=== PATIENT | female | born 1995 | race Caucasian/White ===

== ENCOUNTER 2021-02-16 05:50 | Inpatient (IN) | payer OTHER ==
[~2021-02-16] VITALS: Ht 160 cm; Wt 89.4 kg
--- NOTE | 2021-02-16 12:38 | PR ---
[facility] [address] [facility] [place], [place] [address] Signed Progress Notes IP Datetime Report Generated by CPN: 02/16/2021 12:38 PROGRESS NOTES: [id number] Impression: Normal Progression of Labor; Reassuring Heart Rate Procedures: Artificial ROM; Sterile Vag Exam Plan: Continue Present Management VITAL SIGNS: [id number] Vital Signs: Reviewed VS Notable Details: mild HTN EXAM: [id number] Dilatation: 4.0 Effacement: 80 Station: -2 Contractions: occ MEMBRANES: [id number] Comments: Contractions more noticeable. Will continue. FETUS A: [id number] FHR Baseline: 125 Variability: Moderate 6-25bpm Accelerations: 15X15 Decelerations: None FHR Category: Category I Presentation: Vertex Comments on Fetus A: No evidence of metabolic acidosis FETUS B: [id number] Signing Physician: Daily Bal MD Copies: ~ *Electronically Signed* 02/16/21 1238 DAILY BAL MD PATIENT NAME: LORETO JENSEN PROGRESS NOTE DATE OF : 89 PHYSICIAN: DAILY BAL MD RPT #: [id number] REPORT IS CONFIDENTIAL AND NOT TO BE RELEASED WITHOUT AUTHORIZATION
--- NOTE | 2021-02-16 15:53 | PR ---
[facility] [address] [place], [place] [address] Signed Progress Notes IP Datetime Report Generated by CPN: 02/16/2021 15:53 PROGRESS NOTES: [id number] Impression: Normal Progression of Labor Procedures: Intrauterine Pressure Catheter; Scalp Electrode; Sterile Vag Exam Plan: Continue Present Management VITAL SIGNS: [id number] Vital Signs: Reviewed VS Notable Details: mild HTN EXAM: [id number] Dilatation: 6.0 Effacement: 90 Station: -1 Contractions: occ MEMBRANES: [id number] Comments: Progressing well. Baby with reserve with good accel with exam. Will continue close observation. FETUS A: [id number] FHR Baseline: 125 Variability: Moderate 6-25bpm Accelerations: 15X15 Decelerations: None FHR Category: Category I Presentation: Vertex Comments on Fetus A: No evidence of metabolic acidosis FETUS B: [id number] Signing Physician: Daily Bal MD Copies: ~ *Electronically Signed* 02/16/21 1553 DAILY BAL MD PATIENT NAME: NATALIE JENSENMANOJ ARORAE PROGRESS NOTE DATE OF : 89 PHYSICIAN: DAILY BAL MD RPT #: [id number] REPORT IS CONFIDENTIAL AND NOT TO BE RELEASED WITHOUT AUTHORIZATION
--- NOTE | 2021-02-16 16:59 | PR ---
[facility] [address] [place], [place] [address] Signed Progress Notes IP Datetime Report Generated by CPN: 02/16/2021 16:59 PROGRESS NOTES: [id number] Impression: Normal Progression of Labor; Reassuring Heart Rate Procedures: Sterile Vag Exam Plan: Continue Present Management Other Plans: begin pushing VITAL SIGNS: [id number] Vital Signs: Reviewed VS Notable Details: mild HTN EXAM: [id number] Dilatation: 10.0 Effacement: 100 Station: 2 Contractions: occ MEMBRANES: [id number] Comments: status reassuring after receiving terb earlier. Will begin pushing. FETUS A: [id number] FHR Baseline: 125 Variability: Moderate 6-25bpm Accelerations: 15X15 Decelerations: None FHR Category: Category I Presentation: Vertex Comments on Fetus A: No evidence of metabolic acidosis FETUS B: [id number] Signing Physician: Daily Bal MD Copies: ~ *Electronically Signed* 02/16/21 1659 DAILY BAL MD PATIENT NAME: LORETO JENSEN PROGRESS NOTE DATE OF : 89 PHYSICIAN: DAILY BAL MD RPT #: [id number] REPORT IS CONFIDENTIAL AND NOT TO BE RELEASED WITHOUT AUTHORIZATION
--- NOTE | 2021-02-17 08:35 | PR ---
[facility] [address] [facility] [place], [place] [address] Signed PP Progress Notes Datetime Report Generated by CPN: 02/17/2021 08:35 SUBJECTIVE: [id number] Pain: Within Normal Limits Vital Signs: [id number] Vital Signs: Reviewed; Within Normal Limits Cardiovascular: Not Done Respiratory: Not Done Abdomen/Uterus: Abnormal Lochia: Normal Vulva/Perineum: Not Done Breasts: Not Done CVA Tenderness: Not Done Extremities: Abnormal Incision: Not Applicable Progress: Abnormal Exam Comments: Fundus firm, NT @ U-1. 1+ LE edema H/H 10.7/31.8, WBC 13, plat 236k IMPRESSION/PLAN/PROCEDURES: [id number] Impression: Normal Progression; Difficulties Plan: Consult Progress Notes: Overall doing well other than her breast feeding. Will work on this today with probable discharge tomorrow. Signing Physician: Daily Bal MD Copies: ~ *Electronically Signed* 02/17/21 0835 DAILY BAL MD PATIENT NAME: LORETO JENSEN PROGRESS NOTE DATE OF : 89 PHYSICIAN: DAILY BAL MD RPT #: [id number] REPORT IS CONFIDENTIAL AND NOT TO BE RELEASED WITHOUT AUTHORIZATION
--- NOTE | 2021-02-18 09:37 | PR ---
[facility] [address] [facility] [place], [place] [address] Signed PP Progress Notes Datetime Report Generated by CPN: 02/18/2021 09:37 SUBJECTIVE: [id number] Pain: Within Normal Limits Vital Signs: [id number] Vital Signs: Reviewed Notable Details: occ elevated BPs Cardiovascular: Not Done Respiratory: Not Done Abdomen/Uterus: Abnormal Lochia: Normal Vulva/Perineum: Not Done Breasts: Not Done CVA Tenderness: Not Done Extremities: Normal Incision: Not Applicable Progress: Abnormal Exam Comments: Fundus firm, NT @ U-1. IMPRESSION/PLAN/PROCEDURES: [id number] Impression: Normal Progression Plan: Discharge Procedures: Rubella Progress Notes: Doing well. She is ready for D/C. Signing Physician: Daily Bal MD Copies: ~ *Electronically Signed* 02/18/21 0937 DAILY BAL MD PATIENT NAME: LORETO JENSEN PROGRESS NOTE DATE OF : 89 PHYSICIAN: DAILY BAL MD RPT #: [id number] REPORT IS CONFIDENTIAL AND NOT TO BE RELEASED WITHOUT AUTHORIZATION
== END 2021-02-18 15:00 | disposition home or self-care (01) | DRG 806 ==
LOC: FBC 05:50
PROVIDERS: ADMIT Obstetrics & Gynecology; ATTEND Obstetrics & Gynecology
PROC: 10E0XZZ Delivery of Products of Conception, External Approach (ICD-10-PCS; principal; 2021-02-16)
PROC: 10907ZC Drainage of Amniotic Fluid, Therapeutic from Products of Conception, Via Natural or Artificial Opening (ICD-10-PCS; 2021-02-16)
PROC: 10H07YZ Insertion of Other Device into Products of Conception, Via Natural or Artificial Opening (ICD-10-PCS; 2021-02-16)
PROC: 0KQM0ZZ Repair Perineum Muscle, Open Approach (ICD-10-PCS; 2021-02-16)
PROC: 3E0P7VZ Introduction of Hormone into Female Reproductive, Via Natural or Artificial Opening (ICD-10-PCS; 2021-02-16)
PROC: 00HU33Z Insertion of Infusion Device into Spinal Canal, Percutaneous Approach (ICD-10-PCS; 2021-02-16)
PROC: 3E0R3BZ Introduction of Anesthetic Agent into Spinal Canal, Percutaneous Approach (ICD-10-PCS; 2021-02-16)
PROC: 3E0234Z Introduction of Serum, Toxoid and Vaccine into Muscle, Percutaneous Approach (ICD-10-PCS; 2021-02-18)
DX: O13.4 Gestational [pregnancy-induced] hypertension without significant proteinuria, complicating childbirth (principal); O98.32 Other infections with a predominantly sexual mode of transmission complicating childbirth; Z37.0 Single live birth; O14.04 Mild to moderate pre-eclampsia, complicating childbirth; O69.81X0 Labor and delivery complicated by cord around neck, without compression, not applicable or unspecified; O28.2 Abnormal cytological finding on antenatal screening of mother; O70.1 Second degree perineal laceration during delivery; Z23 Encounter for immunization; Z3A.37 37 weeks gestation of pregnancy; A60.04 Herpesviral vulvovaginitis; Z79.899 Other long term (current) drug therapy
CPT/HCPCS: 01960; 36415; 82565; 82570; 84156; 84450; 84520; 84550; 85025; 85027; 86850; 86900; 86901; 90707; A9270; J2590; J2795; J3010; J3105